=== PATIENT | male | born 1980 | race African-American/Black ===

== ENCOUNTER → 2016-05-22 | Outpatient (CLI) | payer OTHER ==
--- NOTE | 2016-05-22 13:17 | RAD ---
Left ankle, 2 views, 05/22/2016: History: Follow-up ankle fracture No previous radiographs are available at this time for comparison purposes. There are surgical plates and screws transfixing fractures of the distal tibia and distal fibula. The major fracture fragments at both fracture sites are in satisfactory position. There is mild medial displacement of a small fracture fragment at the distal fibular fracture site. The distal fibular fracture line is only faintly visible compatible with partial interval healing. There are sclerotic changes at the distal tibial fracture site with the fracture lines clearly visible. There is slight anterior subluxation of the talus relative to the articular surface of the distal tibia. IMPRESSION: Traumatic and postsurgical changes as described above.
== END | disposition home or self-care (01) ==
LOC: RAD 11:26
DX: S82.892G Other fracture of left lower leg, subsequent encounter for closed fracture with delayed healing (principal); X58.XXXD Exposure to other specified factors, subsequent encounter
CPT/HCPCS: 73600